=== PATIENT | male | born 1930 | race Caucasian/White ===

== ENCOUNTER 2018-08-30 09:57 | Outpatient (CLI) | payer MEDICARE ==
[2018-08-30] MEDS ORDERED: Gadobenate Dimeglumine 529 MG/1 ML (20ML VIAL) ONE (10:34)
--- NOTE | 2018-08-30 14:17 | MRI ---
MRI BRAIN AND INTERNAL AUDITORY CANALS WITH AND WITHOUT CONTRAST: DATE: 08-30-18 HISTORY: 88-year-old male with R42, dizziness, abnormal gait, visual changes and hearing loss. TECHNIQUE: Multiple sequences obtained in axial, sagittal, and coronal planes; both whole brain images and thin slices through the IAC's, pre and post IV injection of gadolinium-based contrast agent: 17 ml MultiHa nce. FINDINGS: The ventricles are normal in size and configuration. There is no restricted diffusion, abnormal intr aaxial enhancement, mass, midline shift or any other mass effect, recent intraaxial hemorrhage, or ex traaxial fluid collection. There are mild T2-hyperintensities in the cerebral white matter consistent with mild chronic ischemic white matter changes due to mild microvascular atherosclerosis. There is no abnormal enhancement, mass, or morphologic abnormality, involving the cerebellopontine an gles, 7th-8th nerve complexes, internal auditory canals, cochleae, vestibules, vestibular aqueducts, or semicircular canals. Limited visualization of the upper cervical spine demonstrates severe degenerative disc disease at C2 -3, C3-4, and C4-5, with either disc herniations or disc/osteophyte complexes impinging on the upper spinal cord at C3-4 and C4-5. IMPRESSION: 1. Mild chronic ischemic white matter changes. 2. Otherwise negative. 3. Chronic upper spinal cord impingement by severe cervical spondylosis, incompletely imaged. jn POS: CHAPARRITA
== END 2018-08-30 09:58 | disposition home or self-care (01) ==
LOC: BICMRI 09:57
PROVIDERS: ATTEND Specialist
DX: R42 Dizziness and giddiness (principal); I67.82 Cerebral ischemia; M47.812 Spondylosis without myelopathy or radiculopathy, cervical region
CPT/HCPCS: 70553; 82565; A9577

== ENCOUNTER 2018-09-20 09:42 | Outpatient (CLI) | payer MEDICARE ==
--- NOTE | 2018-09-20 11:31 | ULT ---
THYROID ULTRASOUND: History: Thyroid nodule. FINDINGS: Real-time imaging of the right and left lobes of the thyroid gland were performed. The right lobe gee sures 2.3 x 2.2 x 5.2 cm, the left lobe 2.4 x 3.3 x 5.1 cm. Both the right and left lobes are very he terogeneous and it is difficult to define discrete nodules in some areas, but there do appear to be s everal nodules present. On the right lobe the largest is a 0.8 x 1.2 x 1.5 cm nodule which is more in the midpole region. It is more hypoechoic. It has some internal macrocalcifications. The borders are somewhat ill defined and correspond to probably a TI-RADS 4 lesion. It is somewhat equivocal as I am not certain the exact borders due to the heterogeneity of the gland. On the left side more suspiciou s nodule, is a hypoechoic area in the mid portion along the medial aspect which on the deep margin of the thyroid gland. Its margins are also slightly ill-defined. It measures 2 x 2.5 x 2.9 cm. It has s ome punctate echogenic foci within it which could represent tiny punctate calcifications. It is hypoe choic with ill-defined borders. Due to its depth, the echogenic foci are difficult to assess but if t hese truly represent punctate echogenic foci, this would correspond to a TI-RADS 5 lesion and biopsy would be indicated. IMPRESSION: Bilateral thyroid nodules, heterogeneity of the gland makes it difficult to define discrete nodules a lthough the more prominent nodules on the right and left are as described above. I would recommend fi ne needle aspiration of the left lobe thyroid nodule. The right lobe thyroid nodule has average dimen sions less than 1.5 cm for which the recommendation would generally be follow up. The posterior locat ion of the left lobe thyroid nodule does raise the possibility of a parathyroid lesion. Correlation w ith lab values would be suggested. POS: [facility]
== END 2018-09-20 09:43 | disposition home or self-care (01) ==
LOC: ULT 09:42
PROVIDERS: ATTEND Thoracic Surgery (Cardiothoracic Vascular Surgery)
DX: E04.2 Nontoxic multinodular goiter (principal)
CPT/HCPCS: 76536

== ENCOUNTER 2018-10-24 09:05 | Outpatient (CLI) | payer MEDICARE ==
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
--- NOTE | 2018-10-24 11:58 | MRI ---
MRI CERVICAL SPINE NONCONTRAST: Date: 10/24/18 HISTORY: 88-year-old male with cervicalgia and ataxia. M54.2 and R27.0. COMPARISON: MRI of 02/19/15. 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 Vertebral body heights are maintained. There are anterior end plate marginal osteophytes that protrude anteriorly into the prevertebral space and encroaching upon the posterior pharyngeal wall a nd larynx at several levels, from C4-5 through C7-T1, and to a lesser degree C3-4. There are varying degrees of disc space narrowing, ranging from mild at C4-5 to severe at C7-T1 where there is end plat e irregularity. Irregularly marginated broad based disc-osteophytic bar complexes protrude into the s pierce canal exacerbating the developmentally small caliber spinal canal. Uncinate process osteophytes , mostly large ones, encroach upon the bilateral neural foramina, causing neural foraminal stenosis. There are mostly moderate degenerative facet changes bilaterally at multiple levels, right greater th an left. C1-2: Posterior arch of C1 is chronically anteriorly positioned relative to C2. This results in narr owing in the anteroposterior dimension of the spinal canal, and overall moderate central spinal canal stenosis. C2-3: Moderate central stenosis. Severe right neural foraminal stenosis. Mild left neural foraminal stenosis. C3-4: Severe central spinal canal stenosis, with indentation of anterior aspect of the spinal canal by the disc-osteophytic bar complex, and abutment of the dorsal surface of the spinal canal by the th ickened ligamentum flavum. Severe bilateral neural foraminal stenosis. C4-5: Severe right neural foraminal stenosis. Moderate to severe left neural foraminal stenosis. Mod erate to severe central spinal canal stenosis. C5-6: Disc-osteophyte complex indents the ventral surface of the spinal cord. Severe central spinal canal stenosis. Severe bilateral neural foraminal stenosis. C6-7: Moderate central spinal canal stenosis. Severe bilateral neural foraminal stenosis, right wors e than left. C7-T1: Moderate central spinal canal stenosis. Severe right neural foraminal stenosis. To a lesser d egree severe left neural foraminal stenosis. Most of the levels of neural foraminal stenosis described above as severe are actually very severe. B ilateral thyroid nodules, left greater than right. These were present in 2014. There is probably no major interval change since 02/19/15. IMPRESSION: Severe cervical spondylosis with multiple levels of severe central spinal canal stenosis and multiple levels of very severe neural foraminal stenosis. POS: C
== END 2018-10-24 09:06 | disposition home or self-care (01) ==
LOC: TBSIIMAG 09:05
PROVIDERS: ATTEND Surgery
DX: M54.2 Cervicalgia (principal); R27.0 Ataxia, unspecified; M47.812 Spondylosis without myelopathy or radiculopathy, cervical region; M48.02 Spinal stenosis, cervical region; M43.12 Spondylolisthesis, cervical region
CPT/HCPCS: 72050; 72141

== ENCOUNTER → 2018-11-08 | Day surgery (SDC) | payer MEDICARE ==
[2018-11-07 14:00] VITALS: BMI 25.2
[~2018-11-08] MED LIST: Prevnar 13-Val Conj/PF 0.5 ML SYRINGE IM ONE
--- NOTE | 2018-11-08 14:25 | ULT ---
US Thyroid Needle Bx HISTORY:Left lobe thyroid nodule with internal calcifications. The lesion measures approximately 2.2 x 3.8 cm in size and was recommended for biopsy. COMPARISON: Ultrasound of the thyroid performed 09/20/2018. FINDINGS: After informed consent was obtained the patient was prepped and draped in normal sterile fa shion. Local anesthesia obtained with 1% Xylocaine mixed with sodium bicarbonate. A 22-gauge needle was used for a total of 4 fine needle aspirations of the left lobe lesion. The patient tolerated the procedure well there were no immediate complications. IMPRESSION: Successful fine needle aspiration of left lobe thyroid nodule.
== END ==
LOC: ULT 12:22
PROVIDERS: ATTEND Specialist
PROC: 0G9G3ZX Drainage of Left Thyroid Gland Lobe, Percutaneous Approach, Diagnostic (ICD-10-PCS; principal; 2018-11-08)
DX: E04.1 Nontoxic single thyroid nodule (principal); I10 Essential (primary) hypertension; K21.9 Gastro-esophageal reflux disease without esophagitis
CPT/HCPCS: 60100; 76942; 88173; 88305

== ENCOUNTER 2019-09-05 06:34 | Outpatient (CLI) | payer MEDICARE ==
[2019-09-05 13:33] LABS: Hemoglobin 15.7 g/dL (14.0-18.0); Mean Corpuscular HGB CONC 33.4 g/dL (32.0-36.0); Mean Corpuscular Hemoglobin 30.8 pg (27.0-31.0); Mean Corpuscular Volume 92.1 fL (78.0-98.0); Mean Platelet Volume 7.4 fL (7.4-10.4); Platelet Count 207 thou/uL (130-400); RBC Distribution Width 12.3 % (11.5-14.5); Red Blood Cell (RBC) Count 5.12 mill/uL (4.70-6.10); White Blood Cell (WBC) Count 6.4 thou/uL (4.8-10.8)
[2019-09-05 13:39] LABS: INR-International Normal Ratio 1.2; PTT 33.7 SEC (22.9-36.1); Prothrombin Time 14.9 SEC (12.0-14.7)
[2019-09-05 13:57] LABS: Anion Gap 10 mmol/L (10-20); BUN (Urea Nitrogen) 19 mg/dL (8.4-25.7); Calc. Creatinine Clearance 0 mL/min (70-130); Calcium 9.3 mg/dL (7.8-10.44); Carbon Dioxide 29 mmol/L (23-31); Chloride 106 mmol/L (98-107); Estimated GFR-MDRD 78; Glucose 85 mg/dL (83-110); Potassium 4.4 mmol/L (3.5-5.1); Sodium 141 mmol/L (136-145)
== END 2019-09-05 06:35 | disposition home or self-care (01) ==
LOC: LABBT 06:34
PROVIDERS: ATTEND Internal Medicine Cardiovascular Disease
DX: Z01.818 Encounter for other preprocedural examination (principal); I48.92 Unspecified atrial flutter
CPT/HCPCS: 80048; 85027; 85610; 85730; 93005; 93010

== ENCOUNTER 2019-09-09 07:18 | Day surgery (SDC) | payer MEDICARE ==
[2019-09-05 11:38] VITALS: BMI 25.0
[~2019-09-09 07:18] MED LIST changes: +Fentanyl 100 MCG/2 ML VIAL ONE; +Heparin 10,000 UNITS/1 ML VIAL ONE; +Lidocaine 1% (PF) 30 ML VIAL ONE; +Midazolam HCl 2 mg/2 ml Vial ONE; +PROPOFOL 0 ML ONE; +PROPOFOL 40 ML ONE; -Prevnar 13-Val Conj/PF 0.5 ML SYRINGE IM ONE; +Succinylcholine Chloride 20 MG/ML 10 ml SYRINGE FS ONE
[2019-09-09] MEDS ORDERED: Heparin (Artline) 500 ML ONE (07:51)
[2019-09-09] MEDS ORDERED: Lidocaine 1% (PF) 30 ML VIAL ONE (07:52)
[2019-09-09] MEDS ORDERED: PROPOFOL 20 ML ONE (08:24)
[2019-09-09] MEDS ORDERED: Lidocaine 1% PF 5 ML VIAL ONE (09:32)
[2019-09-09] MEDS ORDERED: PROPOFOL 200 MG/20 ML VIAL ONE (09:32)
[2019-09-09] MEDS ORDERED: DOPamine 400 MG/D5W 250 ML 250 ML ONE (09:52)
[2019-09-09] MEDS ORDERED: Fentanyl 100 MCG/2 ML VIAL ONE (10:48)
--- NOTE | 2019-09-09 11:14 | OP ---
DATE OF PROCEDURE: 09/09/2019 PROCEDURES PERFORMED: Electrophysiology study and radiofrequency ablation. REASON FOR PROCEDURE: Mr. Rushing is an 89-year-old man with prior history of sustained atrial flutter, who also has coronary artery disease and previous bypass grafting surgery. He has underwent a OLEG today demonstrating no intracardiac clots, preserved left ventricular ejection fraction, but also [id number] left atrial enlargement at 5.6 cm in horizontal diameter. He is here for cavotricuspid isthmus ablation. DESCRIPTION OF PROCEDURE: The patient received deep sedation by anesthesia specialist. After adequate level of sedation achieved, the right femoral venous area was prepped, draped, and anesthetized using subcutaneous lidocaine and under ultrasound guidance, the femoral vein was cannulated x2. Two 8-Upper Sorbian short sheaths were introduced through which a ThermoCool SFST catheter and a decapolar catheter were advanced to the right atrium. 3D mapping of the right atrium, His bundle, and CS positions were obtained. The decapolar catheter was positioned to the right atrium and His bundle and eventually to CS position. Pacing, mapping, and recording were performed in each location. Following findings were noted. The baseline rhythm was atrial fibrillation with variable AV conduction. Cardioversion was performed to restore sinus rhythm. Following that, sinus node recovery time was 495, corrected 195. AV Wenckebach cycle length was 480 milliseconds. Retrograde Wenckebach cycle length was 440 milliseconds. Concentric retrograde VA conduction was seen. AV darshan ERP was overall 600/400 milliseconds. The burst atrial induction was performed in the atrium at the CS position estimating the left atrium. We were able to induce an atrial flutter with typical central to lateral activation on the CS lead. Attempted overdrive pacing at the cavotricuspid isthmus eventually converted the patient into atrial fibrillation. This rhythm was cardioverted and has a history of atrial flutter. Opted for proceed with the cavotricuspid isthmus ablation. Cavotricuspid isthmus ablation was performed in sinus rhythm with proximal CS pacing to assess the transisthmus times. A total of 7 lesions at 4 minutes and 37 seconds delivered achieving transisthmus times over 180 milliseconds. Transisthmus block was demonstrated by longest transisthmus time adjacent to the ablation lesions and shorter laterally. Following that, dopamine was administered and the patency of the isthmus was rechecked, any reconnection reablated. At the end of the case, on dopamine burst atrial stimulation did not induce any sustained atrial arrhythmias. The catheter was removed from the body. Cardiac silhouette did not change. The femoral venous access sites were closed with a Vascade closing device under ultrasound guidance. CONCLUSION: 1. Inducible typical atrial flutter. 2. Cavotricuspid isthmus ablation, successful. 3. Also atypical atrial flutter and atrial fibrillation also seen throughout the case. 4. Normal sinus and borderline AV darshan function. Normal His-Purkinje function seen with HV interval of 43 milliseconds. PLAN: Monitor for recurrent arrhythmias. Consider antiarrhythmic agents, Multaq. If recurrence, possibly pacing backup. Job ID: [id number]
[2019-09-09] MEDS ORDERED: Enalaprilat Dihydrate 1.25 MG/ML VIAL ONE ×2 (11:20→13:38)
[2019-09-09] MEDS ORDERED: Lisinopril 2.5 MG TAB ONE (12:07)
[2019-09-09] MEDS ORDERED: cloNIDine 0.1 MG TAB ONE (13:58)
--- NOTE | 2019-09-09 16:50 | EKG ---
Test Reason : S/P ABLATION Blood Pressure : / mmHG Vent. Rate : 071 BPM Atrial Rate : 071 BPM P-R Int : 214 ms QRS Dur : 098 ms QT Int : 450 ms P-R-T Axes : 019 039 140 degrees QTc Int : 489 ms Sinus rhythm with 1st degree A-V block Voltage criteria for left ventricular hypertrophy Prolonged QT Abnormal ECG Confirmed by SID ALONSO ([id number]) on 09/09/2019 4:50:03 PM Referred By: HARSH Confirmed By:SID ALONSO
== END 2019-09-09 14:50 | disposition home or self-care (01) ==
LOC: CCL 07:18 → EEVIPCON 07:18 → CCL 14:50
PROVIDERS: ATTEND Internal Medicine Cardiovascular Disease
PROC: 02583ZZ Destruction of Conduction Mechanism, Percutaneous Approach (ICD-10-PCS; principal; 2019-09-09)
PROC: 4A023FZ Measurement of Cardiac Rhythm, Percutaneous Approach (ICD-10-PCS; 2019-09-09)
PROC: 4A0234Z Measurement of Cardiac Electrical Activity, Percutaneous Approach (ICD-10-PCS; 2019-09-09)
DX: I48.3 Typical atrial flutter (principal); I48.4 Atypical atrial flutter; I48.91 Unspecified atrial fibrillation; I25.10 Atherosclerotic heart disease of native coronary artery without angina pectoris; I10 Essential (primary) hypertension; E78.5 Hyperlipidemia, unspecified; H40.9 Unspecified glaucoma; Z79.01 Long term (current) use of anticoagulants; Z79.899 Other long term (current) drug therapy; Z87.891 Personal history of nicotine dependence; Z95.1 Presence of aortocoronary bypass graft
CPT/HCPCS: 76942; 92960; 93005; 93010; 93312; 93613; 93623; 93653; C1732; C1769; J1265; J1644; J2001; J2250; J2704; J3010

== ENCOUNTER 2019-10-31 12:20 | Outpatient (CLI) | payer MEDICARE ==
--- NOTE | 2019-10-31 13:21 | MRI ---
Exam: Brain MRI without contrast HISTORY: Visual loss in both eyes. COMPARISON: 08/16/2016, 08/30/2018 FINDINGS: Calvarial marrow signal intensity: Appropriate T1 signal Gradient echo sequence: No hemorrhage Brain parenchyma: No mass, mass effect or midline shift. Brain volume, age-appropriate. Cortical beaulieu-white matter differentiation: Preserved Restricted diffusion: Central arterial flow voids are maintained. Absent restricted diffusion White matter signal intensities:Scattered T2, FLAIR white matter hyperintensities due to chronic smal l vessel ischemic changes Sinuses: Adequate aeration of the paranasal sinuses and mastoid air cells. IMPRESSION: 1. Absent restricted diffusion. No acute infarct. 2. Age-appropriate atrophy. Scattered chronic small vessel ischemic changes white matter.
== END 2019-10-31 12:21 | disposition home or self-care (01) ==
LOC: BICMRI 12:20
PROVIDERS: ATTEND Ophthalmology Glaucoma Specialist
DX: H54.3 Unqualified visual loss, both eyes (principal); H53.40 Unspecified visual field defects; I67.82 Cerebral ischemia; G31.9 Degenerative disease of nervous system, unspecified
CPT/HCPCS: 70551

== ENCOUNTER 2021-01-26 08:52 | Emergency (ER) | payer MEDICARE ==
[2021-01-26 09:35] LABS: #Eosinphils 0.2 thou/uL (0.0-0.7); #Lymphocytes 2.4 thou/uL (1.20-3.40); #Monocytes 0.7 thou/uL (0.11-0.59); #Neutrophils 3.7 thou/uL (1.40-6.50); %Basophils 0.2 % (0.0-1.0); %Eosinophils 2.7 % (0.0-10.0); %Lymphocytes 34.3 % (21.0-51.0); %Monocytes 10.3 % (0.0-10.0); %Neutrophils 52.4 % (42.0-75.0); Hemoglobin 14.5 g/dL (14.0-18.0); Mean Corpuscular HGB CONC 35.8 g/dL (32.0-36.0); Mean Corpuscular Hemoglobin 32.7 pg (27.0-31.0); Mean Corpuscular Volume 91.2 fL (78.0-98.0); Platelet Count 226 thou/uL (130-400); RBC Distribution Width 11.7 % (11.5-14.5); Red Blood Cell (RBC) Count 4.44 mill/uL (4.70-6.10)
[2021-01-26 09:54] LABS: ALT (SGPT) 35 U/L (8-55); AST (SGOT) 24 U/L (5-34); Alkaline Phosphatase 115 U/L (40-110); Anion Gap 15 mmol/L (10-20); BUN (Urea Nitrogen) 23 mg/dL (8.4-25.7); Bilirubin, Total 0.9 mg/dL (0.2-1.2); Calc. Creatinine Clearance 0 mL/min (70-130); Calcium 9.4 mg/dL (7.8-10.44); Carbon Dioxide 24 mmol/L (23-31); Chloride 106 mmol/L (98-107); Globulin 2.8 g/dL (2.4-3.5); Glucose 117 mg/dL (83-110); Potassium 3.7 mmol/L (3.5-5.1); Protein, Total 6.8 g/dL (5.8-8.1); Sodium 141 mmol/L (136-145)
[2021-01-26 12:37] LABS: Troponin I 0.018 ng/mL (< 0.028)
== END 2021-01-26 13:25 | disposition home or self-care (01) ==
LOC: ERS 08:52
DX: J02.9 Acute pharyngitis, unspecified (principal); I10 Essential (primary) hypertension; M19.90 Unspecified osteoarthritis, unspecified site; Z79.82 Long term (current) use of aspirin; Z79.899 Other long term (current) drug therapy
CPT/HCPCS: 36415; 71045; 80053; 82553; 83880; 84484; 85025; 93005

== ENCOUNTER 2021-11-22 11:59 | Inpatient (IN) | payer MEDICARE ==
[2021-11-22 12:45] LABS: #Eosinphils 0.1 thou/uL (0.0-0.7); #Monocytes 0.8 thou/uL (0.11-0.59); #Neutrophils 4.7 thou/uL (1.40-6.50); %Basophils 0.2 % (0.0-1.0); %Eosinophils 0.9 % (0.0-10.0); %Monocytes 10.4 % (0.0-10.0); %Neutrophils 62.4 % (42.0-75.0); Hemoglobin 14.4 g/dL (14.0-18.0); Mean Corpuscular HGB CONC 33.5 g/dL (32.0-36.0); Mean Corpuscular Hemoglobin 30.7 pg (27.0-31.0); Mean Corpuscular Volume 91.7 fL (78.0-98.0); Mean Platelet Volume 6.5 fL (7.4-10.4); Platelet Count 302 thou/uL (130-400); RBC Distribution Width 12.4 % (11.5-14.5); Red Blood Cell (RBC) Count 4.67 mill/uL (4.70-6.10); White Blood Cell (WBC) Count 7.5 thou/uL (4.8-10.8)
[2021-11-22 12:56] LABS: Bilirubin Negative (Negative); Blood, Urine Negative (Negative); Clarity Clear (Clear); Glucose, Urine (Dipstick) Normal (Negative); Ketone, Urine Trace mg/dL (Negative); Leukocyte Negative Leu/uL (Negative); Nitrite Negative (Negative); Protein, Urine (Dipstick) Negative (Neg-Trace); Specific Gravity, Urine 1.013 (1.002-1.036); Urobilinogen Normal mg/dL (Less than 2)
[2021-11-22 12:58] LABS: ALT (SGPT) 30 U/L (8-55); AST (SGOT) 27 U/L (5-34); Albumin 4.1 g/dL (3.4-4.8); Alkaline Phosphatase 133 U/L (40-110); Anion Gap 16 mmol/L (10-20); BUN (Urea Nitrogen) 25 mg/dL (8.4-25.7); Bilirubin, Total 1.6 mg/dL (0.2-1.2); Calc. Creatinine Clearance 0 mL/min (70-130); Calcium 9.8 mg/dL (7.8-10.44); Carbon Dioxide 26 mmol/L (23-31); Chloride 103 mmol/L (98-107); Globulin 3.3 g/dL (2.4-3.5); Glucose 103 mg/dL (83-110); Potassium 4.1 mmol/L (3.5-5.1); Protein, Total 7.4 g/dL (5.8-8.1); Sodium 141 mmol/L (136-145)
[2021-11-22] MEDS ORDERED: hydrALAZINE 20 MG/ML VIAL SLOW IVP PRN (16:00)
[2021-11-22] MEDS ORDERED: Calcium Carbonate 500 MG ChewTAB PO PRN (16:02)
[2021-11-22] MEDS ORDERED: Electrolyte Replacement Protocol 1 EACH FS SCH (16:15)
[2021-11-22] MEDS ORDERED: Aspirin 325 mg Enteric Coated Tablet PO SCH (16:15)
[2021-11-22] MEDS ORDERED: Electrolyte Replacement Protocol FS PRN (16:30)
[2021-11-22 16:41] VITALS: BMI 23.7
[2021-11-22] MEDS: Sodium Chloride 0.9% 1,000 ML IV SCH (17:31)
[2021-11-22 17:39] LABS: Troponin I 0.033 ng/mL (< 0.028)
[2021-11-22 18:43] LABS: SARS-CoV-2 NAA Rapid Test Not Detected (NotDetected)
[2021-11-22] MEDS: Atorvastatin Calcium 40 MG TAB PO SCH (20:45)
[2021-11-22] MEDS: Senokot S 8.6-50 MG TAB PO SCH (20:45)
[2021-11-23] MEDS: Sodium Chloride 0.9% 1,000 ML IV SCH (05:28)
[2021-11-23 05:41] LABS: #Eosinphils 0.2 thou/uL (0.0-0.7); #Lymphocytes 2.2 thou/uL (1.20-3.40); #Monocytes 0.8 thou/uL (0.11-0.59); #Neutrophils 4.6 thou/uL (1.40-6.50); %Basophils 0.2 % (0.0-1.0); %Lymphocytes 27.9 % (21.0-51.0); %Monocytes 10.5 % (0.0-10.0); %Neutrophils 58.4 % (42.0-75.0); Hemoglobin 13.5 g/dL (14.0-18.0); Mean Corpuscular HGB CONC 33.2 g/dL (32.0-36.0); Mean Corpuscular Hemoglobin 30.8 pg (27.0-31.0); Mean Platelet Volume 6.4 fL (7.4-10.4); Platelet Count 275 thou/uL (130-400); RBC Distribution Width 12.4 % (11.5-14.5); Red Blood Cell (RBC) Count 4.36 mill/uL (4.70-6.10); White Blood Cell (WBC) Count 7.8 thou/uL (4.8-10.8)
[2021-11-23] MEDS: Acetaminophen 325 MG TAB PO PRN (05:43)
[2021-11-23 06:05] LABS: Anion Gap 15 mmol/L (10-20); BUN (Urea Nitrogen) 20 mg/dL (8.4-25.7); Calc. Creatinine Clearance 60 mL/min (70-130); Carbon Dioxide 24 mmol/L (23-31); Chloride 105 mmol/L (98-107); Potassium 3.6 mmol/L (3.5-5.1); Sodium 140 mmol/L (136-145)
[2021-11-23 06:06] LABS: Calcium 8.9 mg/dL (7.8-10.44); Cardiac Risk 3.5 (Less than 4.5); Cholesterol 160 mg/dl (< 200 Desired); Glucose 72 mg/dL (83-110); HDL Cholesterol 46 mg/dL (>60 Neg Risk); LDL Cholesterol, Calculated 96 mg/dL; Triglycerides 91 mg/dL (Less than 150); Troponin I 0.031 ng/mL (< 0.028)
[2021-11-23] MEDS: Aspirin 325 mg Enteric Coated Tablet PO SCH (09:12)
[2021-11-23] MEDS: Enoxaparin Sodium 40 MG/0.4 ML SYRINGE SC SCH (09:12)
[2021-11-23] MEDS: Senokot S 8.6-50 MG TAB PO SCH ×2 (09:12→21:19)
[2021-11-23] MEDS ORDERED: Lorazepam 2 MG/ML VIAL SLOW IVP SCH (15:15)
[2021-11-23] MEDS: Atorvastatin Calcium 40 MG TAB PO SCH (21:19)
[2021-11-24] MEDS: Aspirin 325 mg Enteric Coated Tablet PO SCH (09:27)
[2021-11-24] MEDS: Enoxaparin Sodium 40 MG/0.4 ML SYRINGE SC SCH (09:27)
[2021-11-24] MEDS: Senokot S 8.6-50 MG TAB PO SCH ×2 (09:27→21:03)
[2021-11-24] MEDS ORDERED: Magnesium Oxide 400 MG TAB PO SCH (13:00)
[2021-11-24] MEDS: Donepezil HCl 5 MG TAB PO SCH (17:47)
[2021-11-24] MEDS: Atorvastatin Calcium 40 MG TAB PO SCH (21:03)
[2021-11-24] MEDS: Cholecalciferol 1,000 UNITS (25 MCG) TAB PO SCH (21:03)
[2021-11-25] MEDS ORDERED: IRON PO SCH (08:00)
[2021-11-25] MEDS: Enoxaparin Sodium 40 MG/0.4 ML SYRINGE SC SCH (09:07)
[2021-11-25] MEDS: Cyanocobalamin (Vitamin B-12) 1,000 MCG TAB PO SCH (09:07)
[2021-11-25] MEDS: Amlodipine 5 MG TAB PO SCH (09:07)
[2021-11-25] MEDS: Senokot S 8.6-50 MG TAB PO SCH ×2 (09:07→20:23)
[2021-11-25] MEDS: Cholecalciferol 1,000 UNITS (25 MCG) TAB PO SCH ×2 (09:07→20:24)
[2021-11-25] MEDS: Multivit, Therapeutic 1 TAB PO SCH (09:07)
[2021-11-25] MEDS: Lisinopril 10 MG TAB PO SCH (09:07)
[2021-11-25] MEDS: Folic Acid 1 MG TAB PO SCH (09:07)
[2021-11-25] MEDS: Aspirin 325 mg Enteric Coated Tablet PO SCH (09:07)
[2021-11-25] MEDS: Ascorbic Acid 500 mg Chewable Tablet PO SCH (09:08)
[2021-11-25] MEDS: Magnesium Oxide 400 MG TAB PO SCH (11:53)
[2021-11-25] MEDS: Donepezil HCl 5 MG TAB PO SCH (17:12)
[2021-11-25] MEDS: Acetaminophen 325 MG TAB PO PRN (17:15)
[2021-11-25] MEDS: Atorvastatin Calcium 40 MG TAB PO SCH (20:24)
[2021-11-26] MEDS: Lisinopril 10 MG TAB PO SCH (09:53)
[2021-11-26] MEDS: Folic Acid 1 MG TAB PO SCH (09:53)
[2021-11-26] MEDS: Aspirin 325 mg Enteric Coated Tablet PO SCH (09:53)
[2021-11-26] MEDS: Multivit, Therapeutic 1 TAB PO SCH (09:53)
[2021-11-26] MEDS: Senokot S 8.6-50 MG TAB PO SCH (09:53)
[2021-11-26] MEDS: Cyanocobalamin (Vitamin B-12) 1,000 MCG TAB PO SCH (09:53)
[2021-11-26] MEDS: Ascorbic Acid 500 mg Chewable Tablet PO SCH (09:55)
[2021-11-26] MEDS: Amlodipine 5 MG TAB PO SCH (09:55)
[2021-11-26] MEDS: Cholecalciferol 1,000 UNITS (25 MCG) TAB PO SCH (09:56)
[2021-11-26] MEDS: Enoxaparin Sodium 40 MG/0.4 ML SYRINGE SC SCH (09:56)
[2021-11-26] MEDS: Acetaminophen 325 MG TAB PO PRN (11:55)
[2021-11-26] MEDS: Magnesium Oxide 400 MG TAB PO SCH (11:56)
[2021-11-26 12:07] VITALS: BP 132/68; TEMP 98
== END 2021-11-26 16:32 | disposition home health service (06) | DRG 71 ==
LOC: ERS 11:59 → NEURO 14:47 → OBSVTOIN 11-23 11:49
PROVIDERS: ADMIT Internal Medicine; ATTEND Family Medicine
PROC: 4A10X4Z Monitoring of Central Nervous Electrical Activity, External Approach (ICD-10-PCS; principal; 2021-11-24)
DX: G93.41 Metabolic encephalopathy (principal); I48.20 Chronic atrial fibrillation, unspecified; I10 Essential (primary) hypertension; I25.10 Atherosclerotic heart disease of native coronary artery without angina pectoris; E78.5 Hyperlipidemia, unspecified; H40.9 Unspecified glaucoma; F03.90 Unspecified dementia, unspecified severity, without behavioral disturbance, psychotic disturbance, mood disturbance, and anxiety; M19.90 Unspecified osteoarthritis, unspecified site; R53.81 Other malaise; Z20.822 Contact with and (suspected) exposure to COVID-19; Z79.899 Other long term (current) drug therapy; Z79.82 Long term (current) use of aspirin; Z95.1 Presence of aortocoronary bypass graft; Z98.890 Other specified postprocedural states; Z91.81 History of falling; Z86.73 Personal history of transient ischemic attack (TIA), and cerebral infarction without residual deficits
CPT/HCPCS: 36415; 36416; 70450; 70551; 71045; 74176; 80048; 80053; 80061; 81003; 82607; 82746; 83880; 84484; 85025; 93005; 95712; 95819; 95957; J1650; J2060; J7050; U0002

== ENCOUNTER 2022-01-26 20:51 | Emergency (ER) | payer MEDICARE ==
[2022-01-26 21:14] LABS: #Basophils 0.1 thou/uL (0.0-0.2); #Eosinphils 0.3 thou/uL (0.0-0.7); #Lymphocytes 2.2 thou/uL (1.20-3.40); #Neutrophils 5.1 thou/uL (1.40-6.50); %Eosinophils 2.9 % (0.0-10.0); %Lymphocytes 25.7 % (21.0-51.0); %Monocytes 11.8 % (0.0-10.0); %Neutrophils 58.7 % (42.0-75.0); Mean Corpuscular HGB CONC 32.1 g/dL (32.0-36.0); Mean Corpuscular Hemoglobin 30.6 pg (27.0-31.0); Mean Corpuscular Volume 95.5 fL (78.0-98.0); Mean Platelet Volume 6.8 fL (7.4-10.4); Platelet Count 291 thou/uL (130-400); RBC Distribution Width 12.3 % (11.5-14.5); Red Blood Cell (RBC) Count 4.58 mill/uL (4.70-6.10); White Blood Cell (WBC) Count 8.6 thou/uL (4.8-10.8)
[2022-01-26 21:26] LABS: INR-International Normal Ratio 1.2; Prothrombin Time 15.4 sec (12.0-14.7)
[2022-01-26 21:27] LABS: PTT 34.7 sec (22.9-36.1)
[2022-01-26 21:58] LABS: Bilirubin Negative (Negative); Blood, Urine Negative (Negative); Clarity Clear (Clear); Glucose, Urine (Dipstick) Normal (Negative); Ketone, Urine Negative (Negative); Leukocyte Negative Leu/uL (Negative); Nitrite Negative (Negative); Protein, Urine (Dipstick) Negative (Neg-Trace); Specific Gravity, Urine 1.019 (1.002-1.036); pH, Urine 5.5 (5.0-9.0)
[2022-01-26 22:04] LABS: Albumin 4.2 g/dL (3.4-4.8)
[2022-01-26 22:05] LABS: Chloride 103 mmol/L (98-107); Potassium 4.3 mmol/L (3.5-5.1); Sodium 140 mmol/L (136-145)
[2022-01-26 22:06] LABS: Calcium 9.3 mg/dL (7.8-10.44); Glucose 139 mg/dL (83-110)
[2022-01-26 22:11] LABS: Anion Gap 15 mmol/L (10-20); Bilirubin, Total 0.6 mg/dL (0.2-1.2); Carbon Dioxide 26 mmol/L (23-31); Protein, Total 7.2 g/dL (5.8-8.1)
[2022-01-26 22:12] LABS: ALT (SGPT) 27 U/L (8-55); AST (SGOT) 28 U/L (5-34); Alkaline Phosphatase 169 U/L (40-110); BUN (Urea Nitrogen) 16 mg/dL (8.4-25.7); Calc. Creatinine Clearance 0 mL/min (70-130); Estimated GFR 82
[2022-01-26] MEDS ORDERED: Lorazepam 2 MG/ML VIAL ONE (22:22)
== END 2022-01-26 22:36 | disposition home or self-care (01) ==
LOC: ERS 20:51
DX: R45.6 Violent behavior (principal); I10 Essential (primary) hypertension; Z79.899 Other long term (current) drug therapy; Z79.82 Long term (current) use of aspirin; I48.91 Unspecified atrial fibrillation
CPT/HCPCS: 36416; 70450; 71045; 80053; 81003; 84484; 85025; 85610; 85730; 93005; 96372; J2060

== ENCOUNTER 2022-01-27 06:23 | Observation (INO) | payer MEDICARE ==
[2022-01-27] MEDS ORDERED: Bacitracin 1 PK ONE (06:46)
[2022-01-27 07:57] LABS: Bilirubin Negative (Negative); Blood, Urine Negative (Negative); Clarity Clear (Clear); Glucose, Urine (Dipstick) Normal (Negative); Ketone, Urine Negative (Negative); Leukocyte Negative Leu/uL (Negative); Nitrite Negative (Negative); Protein, Urine (Dipstick) Negative (Neg-Trace); Urobilinogen Normal mg/dL (Less than 2); pH, Urine 5.5 (5.0-9.0)
[2022-01-27] MEDS ORDERED: Lorazepam 2 MG/ML VIAL ONE (12:01)
[2022-01-27] MEDS ORDERED: Ziprasidone 20 MG VIAL IM SCH ×2 (13:15→22:15)
[2022-01-27 13:51] LABS: SARS-CoV-2 NAA Rapid Test Not Detected (NotDetected)
[2022-01-27 14:25] LABS: #Eosinphils 0.1 thou/uL (0.0-0.7); #Lymphocytes 1.9 thou/uL (1.20-3.40); #Monocytes 1.2 thou/uL (0.11-0.59); #Neutrophils 7.7 thou/uL (1.40-6.50); %Basophils 0.1 % (0.0-1.0); %Lymphocytes 17.3 % (21.0-51.0); %Monocytes 10.6 % (0.0-10.0); %Neutrophils 70.9 % (42.0-75.0); Hemoglobin 13.8 g/dL (14.0-18.0); Mean Corpuscular HGB CONC 32.5 g/dL (32.0-36.0); Mean Corpuscular Hemoglobin 30.6 pg (27.0-31.0); Mean Corpuscular Volume 94.3 fL (78.0-98.0); Mean Platelet Volume 6.6 fL (7.4-10.4); Platelet Count 282 thou/uL (130-400); RBC Distribution Width 12.3 % (11.5-14.5); White Blood Cell (WBC) Count 10.8 thou/uL (4.8-10.8)
[2022-01-27 14:45] LABS: Phosphorus 2.5 mg/dL (2.3-4.7)
[2022-01-27 15:01] LABS: ALT (SGPT) 23 U/L (8-55); AST (SGOT) 22 U/L (5-34); Albumin 3.7 g/dL (3.4-4.8); Alkaline Phosphatase 145 U/L (40-110); Anion Gap 15 mmol/L (10-20); BUN (Urea Nitrogen) 12 mg/dL (8.4-25.7); Bilirubin, Total 1.1 mg/dL (0.2-1.2); Calc. Creatinine Clearance 0 mL/min (70-130); Calcium 9.6 mg/dL (7.8-10.44); Carbon Dioxide 26 mmol/L (23-31); Chloride 103 mmol/L (98-107); Estimated GFR 86; Globulin 3.2 g/dL (2.4-3.5); Glucose 108 mg/dL (83-110); Magnesium 1.9 mg/dL (1.6-2.6); Potassium 3.9 mmol/L (3.5-5.1); Protein, Total 6.9 g/dL (5.8-8.1); Sodium 140 mmol/L (136-145)
[2022-01-27 15:05] VITALS: BMI 23.3
[2022-01-27] MEDS ORDERED: Sterile Water 10 ML VIAL FS PRN (15:13)
[2022-01-27] MEDS ORDERED: hydrALAZINE 20 MG/ML VIAL SLOW IVP PRN (15:21)
[2022-01-27 18:34] LABS: Syphilis Antibody Nonreactive (Nonreactive); Syphilis Antibody Index 0.07 S/CO (<1.00 Non-Reactive)
[2022-01-28] MEDS ORDERED: OLANZapine 10 MG VIAL IM SCH (04:30)
[2022-01-28 05:57] LABS: #Lymphocytes 1.4 thou/uL (1.20-3.40); #Monocytes 1.2 thou/uL (0.11-0.59); #Neutrophils 8.2 thou/uL (1.40-6.50); %Basophils 0.4 % (0.0-1.0); %Eosinophils 0.3 % (0.0-10.0); %Lymphocytes 13.1 % (21.0-51.0); %Monocytes 11.1 % (0.0-10.0); %Neutrophils 75.1 % (42.0-75.0); Hemoglobin 13.9 g/dL (14.0-18.0); Mean Corpuscular HGB CONC 31.9 g/dL (32.0-36.0); Mean Corpuscular Hemoglobin 30.1 pg (27.0-31.0); Mean Corpuscular Volume 94.4 fL (78.0-98.0); Mean Platelet Volume 6.8 fL (7.4-10.4); Platelet Count 297 thou/uL (130-400); RBC Distribution Width 12.5 % (11.5-14.5); Red Blood Cell (RBC) Count 4.61 mill/uL (4.70-6.10); White Blood Cell (WBC) Count 10.9 thou/uL (4.8-10.8)
[2022-01-28 06:43] LABS: Anion Gap 14 mmol/L (10-20); BUN (Urea Nitrogen) 9 mg/dL (8.4-25.7); Calc. Creatinine Clearance 75 mL/min (70-130); Calcium 9.8 mg/dL (7.8-10.44); Carbon Dioxide 28 mmol/L (23-31); Chloride 103 mmol/L (98-107); Estimated GFR 87; Glucose 109 mg/dL (83-110); Potassium 3.6 mmol/L (3.5-5.1); Sodium 141 mmol/L (136-145)
[2022-01-29 06:53] LABS: Anion Gap 16 mmol/L (10-20); BUN (Urea Nitrogen) 13 mg/dL (8.4-25.7); Calc. Creatinine Clearance 77 mL/min (70-130); Calcium 9.4 mg/dL (7.8-10.44); Carbon Dioxide 23 mmol/L (23-31); Chloride 106 mmol/L (98-107); Estimated GFR 87; Glucose 92 mg/dL (83-110); Potassium 4.3 mmol/L (3.5-5.1); Sodium 141 mmol/L (136-145)
[2022-01-29] MEDS: Dextrose 5% in Water 1,000 ML IV SCH ×2 (08:44→21:14)
[2022-01-29] MEDS: Acetaminophen 325 MG TAB PO PRN (20:06)
[2022-01-29] MEDS: Donepezil HCl 5 MG TAB PO SCH (20:06)
[2022-01-29] MEDS: Atorvastatin Calcium 10 MG TAB PO SCH (20:07)
[2022-01-29] MEDS: Amlodipine 5 MG TAB PO SCH (20:07)
[2022-01-30] MEDS: Lisinopril 10 MG TAB PO SCH (08:12)
[2022-01-30] MEDS: Magnesium Oxide 400 MG TAB PO SCH (08:12)
[2022-01-30] MEDS: Folic Acid 1 MG TAB PO SCH (08:17)
[2022-01-30] MEDS: Aspirin 325 mg Enteric Coated Tablet PO SCH (08:17)
[2022-01-30] MEDS: Ascorbic Acid 500 mg Chewable Tablet PO SCH (08:17)
[2022-01-30] MEDS: Cyanocobalamin (Vitamin B-12) 1,000 MCG TAB PO SCH (08:17)
[2022-01-30] MEDS: Cholecalciferol 1,000 UNITS (25 MCG) TAB PO SCH (08:17)
[2022-01-30] MEDS: Acetaminophen 325 MG TAB PO PRN ×2 (13:32→18:51)
[2022-01-30] MEDS: Dextrose 5% in Water 1,000 ML IV SCH (13:42)
[2022-01-30] MEDS: Lansoprazole 3 MG/ML ORAL SUSPENSION PER TUBE SCH (18:50)
[2022-01-30] MEDS: Donepezil HCl 5 MG TAB PO SCH (21:03)
[2022-01-30] MEDS: Amlodipine 5 MG TAB PO SCH (21:04)
[2022-01-30] MEDS: Atorvastatin Calcium 10 MG TAB PO SCH (21:06)
[2022-01-31] MEDS: Dextrose 5% in Water 1,000 ML IV SCH ×2 (02:07→14:16)
[2022-01-31] MEDS: Ascorbic Acid 500 mg Chewable Tablet PO SCH (07:58)
[2022-01-31] MEDS: Lisinopril 10 MG TAB PO SCH (07:58)
[2022-01-31] MEDS: Cholecalciferol 1,000 UNITS (25 MCG) TAB PO SCH (07:58)
[2022-01-31] MEDS: Cyanocobalamin (Vitamin B-12) 1,000 MCG TAB PO SCH (07:58)
[2022-01-31] MEDS: Magnesium Oxide 400 MG TAB PO SCH (07:58)
[2022-01-31] MEDS: Aspirin 325 mg Enteric Coated Tablet PO SCH (07:58)
[2022-01-31] MEDS: Folic Acid 1 MG TAB PO SCH (07:59)
[2022-01-31] MEDS: Lansoprazole 3 MG/ML ORAL SUSPENSION PER TUBE SCH (08:13)
[2022-01-31] MEDS: Acetaminophen 325 MG TAB PO PRN ×2 (14:18→18:05)
[2022-01-31] MEDS: Donepezil HCl 5 MG TAB PO SCH (20:09)
[2022-01-31] MEDS: Amlodipine 5 MG TAB PO SCH (20:10)
[2022-01-31] MEDS: Atorvastatin Calcium 10 MG TAB PO SCH (20:10)
[2022-02-01] MEDS: Dextrose 5% in Water 1,000 ML IV SCH ×2 (05:26→08:02)
[2022-02-01] MEDS: Ascorbic Acid 500 mg Chewable Tablet PO SCH (08:03)
[2022-02-01] MEDS: Cholecalciferol 1,000 UNITS (25 MCG) TAB PO SCH (08:03)
[2022-02-01] MEDS: Magnesium Oxide 400 MG TAB PO SCH (08:03)
[2022-02-01] MEDS: Folic Acid 1 MG TAB PO SCH (08:03)
[2022-02-01] MEDS: Lisinopril 10 MG TAB PO SCH (08:03)
[2022-02-01] MEDS: Aspirin 325 mg Enteric Coated Tablet PO SCH (08:03)
[2022-02-01] MEDS: Cyanocobalamin (Vitamin B-12) 1,000 MCG TAB PO SCH (08:03)
[2022-02-01] MEDS: Lansoprazole 3 MG/ML ORAL SUSPENSION PER TUBE SCH (08:03)
[2022-02-01] MEDS: Acetaminophen 325 MG TAB PO PRN ×2 (11:46→20:14)
[2022-02-01] MEDS: Amlodipine 5 MG TAB PO SCH (20:14)
[2022-02-01] MEDS: Atorvastatin Calcium 10 MG TAB PO SCH (20:15)
[2022-02-01] MEDS: Donepezil HCl 5 MG TAB PO SCH (20:15)
[2022-02-02] MEDS: Dextrose 5% in Water 1,000 ML IV SCH ×2 (06:43→18:29)
[2022-02-02] MEDS: Ascorbic Acid 500 mg Chewable Tablet PO SCH (08:16)
[2022-02-02] MEDS: Lisinopril 10 MG TAB PO SCH (08:16)
[2022-02-02] MEDS: Magnesium Oxide 400 MG TAB PO SCH (08:16)
[2022-02-02] MEDS: Folic Acid 1 MG TAB PO SCH (08:16)
[2022-02-02] MEDS: Aspirin 325 mg Enteric Coated Tablet PO SCH (08:16)
[2022-02-02] MEDS: Cyanocobalamin (Vitamin B-12) 1,000 MCG TAB PO SCH (08:16)
[2022-02-02] MEDS: Cholecalciferol 1,000 UNITS (25 MCG) TAB PO SCH (08:16)
[2022-02-02] MEDS: Lansoprazole 3 MG/ML ORAL SUSPENSION PER TUBE SCH (08:17)
[2022-02-02] MEDS: Acetaminophen 325 MG TAB PO PRN ×2 (14:53→19:54)
[2022-02-02] MEDS: Donepezil HCl 5 MG TAB PO SCH (19:55)
[2022-02-02] MEDS: Atorvastatin Calcium 10 MG TAB PO SCH (19:55)
[2022-02-02] MEDS: Amlodipine 5 MG TAB PO SCH (19:55)
[2022-02-03 07:12] VITALS: BP 148/70; TEMP 98.1
[2022-02-03] MEDS: Lisinopril 10 MG TAB PO SCH (09:21)
[2022-02-03] MEDS: Lansoprazole 3 MG/ML ORAL SUSPENSION PER TUBE SCH (09:21)
[2022-02-03] MEDS: Folic Acid 1 MG TAB PO SCH (09:21)
[2022-02-03] MEDS: Dextrose 5% in Water 1,000 ML IV SCH (09:22)
[2022-02-03] MEDS: Magnesium Oxide 400 MG TAB PO SCH (09:22)
[2022-02-03] MEDS: Aspirin 325 mg Enteric Coated Tablet PO SCH (09:22)
[2022-02-03] MEDS: Ascorbic Acid 500 mg Chewable Tablet PO SCH (09:22)
[2022-02-03] MEDS: Cyanocobalamin (Vitamin B-12) 1,000 MCG TAB PO SCH (09:22)
[2022-02-03] MEDS: Cholecalciferol 1,000 UNITS (25 MCG) TAB PO SCH (09:22)
== END 2022-02-03 12:47 | disposition home or self-care (01) ==
LOC: ERS 06:23 → T4-B 11:42
PROVIDERS: ADMIT Internal Medicine; ATTEND Internal Medicine
DX: G93.41 Metabolic encephalopathy (principal); F03.90 Unspecified dementia, unspecified severity, without behavioral disturbance, psychotic disturbance, mood disturbance, and anxiety; H54.7 Unspecified visual loss; H91.90 Unspecified hearing loss, unspecified ear; R29.6 Repeated falls; I25.10 Atherosclerotic heart disease of native coronary artery without angina pectoris; I48.91 Unspecified atrial fibrillation; I48.92 Unspecified atrial flutter; I47.2 Ventricular tachycardia; I10 Essential (primary) hypertension; M47.812 Spondylosis without myelopathy or radiculopathy, cervical region; M48.02 Spinal stenosis, cervical region; Z51.5 Encounter for palliative care; Z66 Do not resuscitate; Z86.73 Personal history of transient ischemic attack (TIA), and cerebral infarction without residual deficits; Z79.01 Long term (current) use of anticoagulants; Z79.82 Long term (current) use of aspirin; Z79.899 Other long term (current) drug therapy; Z95.1 Presence of aortocoronary bypass graft; Z20.822 Contact with and (suspected) exposure to COVID-19
CPT/HCPCS: 70450; 71045; 72125; 80048 ×2; 81003; 82140 ×2; 82607; 82746; 82962; 83735; 84100; 85025; 85652; 86780; 93005; 96372 ×2; 96374; 97116 ×2; 97530 ×2; 99285; G0378 ×9; J2358; U0002; U0003; U0005; 36415; 36416; 80053; 84443; 93010; J2060; J3486; J7070